=== PATIENT | female | born 1985 | race American Indian/Alaskan Native ===

== ENCOUNTER 2017-12-22 01:37 | Emergency (ER) | payer BC, MEDICAID, OTHER ==
[2017-12-22 01:55] VITALS: BP 131/74
--- NOTE | 2017-12-22 02:30 | EDM.PDOC ---
ED HPI GENERAL MEDICAL PROBLEM - General Chief Complaint: [facility] Problem Stated Complaint: 13 WEEKS HIGH RISK PREGNENCY CRAMPING AND LEG PAIN Time Seen by Provider: 12/22/17 01:55 Source of Information: Reports: Patient History Limitations: Reports: No Limitations - History of Present Illness INITIAL COMMENTS - FREE TEXT/NARRATIVE: The patient states that she has had a "funny" feeling in her anterior thighs since morning, 12/21/2017. She states that she has the sensation that she needs to move her legs. She also reports lower abdominal cramps without vaginal bleeding. She is approximately 13 weeks gestation. She does not know her LMP, but has undergone 2 ultrasounds during this , both demonstrating a single live intrauterine . Her FABIÁN is 06/24/2018. She is L1. Her next appointment with her workforce staffing advisor is on 01/08/2018. No prior similar symptoms. No recent illnesses, however, the patient reports that she is under increased stress, as her recently . Suprapubic Pain Score (Numeric/FACES): 6 - Related Data Allergies Allergy/AdvReac Type Severity Reaction Status Date / Time No Known Allergies Allergy Verified 12/22/17 01:59 Home Meds: Home Meds Ascorbic Acid [Vitamin C] 1 tab PO DAILY 12/22/17 [History] Calcium Carbonate [Calcium] 1 tab PO DAILY 12/22/17 [History] Folic Acid 1 tab PO DAILY 12/22/17 [History] Insulin Aspart [NovoLOG] 14 units SQ QAM 12/22/17 [History] Insulin Aspart [NovoLOG] 16 units SQ QPM 12/22/17 [History] Nph, Human Insulin Isophane [Humulin N] 26 units SQ BEDTIME 12/22/17 [History] Nph, Human Insulin Isophane [Humulin N] 44 units SQ QAM 12/22/17 [History] PNV95/Ferrous Fumarate/FA [ Tablet] 1 tab PO DAILY 12/22/17 [History] metFORMIN HCl [Metformin HCl] 1,000 mg PO BIDMEALS 12/22/17 [History] Past Medical History [facility] History: Reports: Other (See Below) (Polycystic ovarian disease) Endocrine/Metabolic History: Reports: Diabetes, Type II, Obesity/BMI 30+ - Past Surgical History HEENT Surgical History: Reports: Oral Surgery ([place] teeth extraction) GI Surgical History: Reports: Cholecystectomy Female Surgical History: Reports: D&C (x 1) Social & Family History - Family History Family Medical History: Noncontributory - Tobacco Use Smoking Status *Q: Never Smoker - Alcohol Use Alcohol Use History: Yes Alcohol Use Frequency: Rarely (not during ) - Recreational Drug Use Recreational Drug Use: No - Living Situation & Occupation Living situation: Reports: , with Family (Daughter, brother) Occupation: Employed (export manager) ED ROS GENERAL - Review of Systems Review Of Systems: ROS reveals no pertinent complaints other than HPI. ED EXAM - Physical Exam Exam: See Below Exam Limited By: No Limitations General Appearance: Alert, WD/WN, No Apparent Distress Eye Exam: Bilateral Eye: Normal Inspection Ears: Normal External Exam, Hearing Grossly Normal Nose: Normal Inspection, No Blood Throat/Mouth: Normal Inspection, Normal Lips, Normal Voice, No Airway Compromise Head: Atraumatic, Normocephalic Neck: Normal Inspection, Full Range of Motion Respiratory/Chest: No Respiratory Distress, Lungs Clear, Normal Breath Sounds, No Accessory Muscle Use Cardiovascular: Normal Peripheral Pulses, Regular Rate, Rhythm, No Edema, No Gallop, No JVD, No Murmur, No Rub GI/Abdominal Exam: Normal Bowel Sounds, Soft, Non-Tender, No Organomegaly, No Distention, No Abnormal Bruit, No Mass, Other (Obese) Rectal Exam: Deferred Back Exam: Normal Inspection, Full Range of Motion, NT Extremities: Normal Inspection, Normal Range of Motion, No Pedal Edema, Normal Capillary Refill Neurological: Alert, Oriented, Normal Cognition, No Motor/Sensory Deficits Psychiatric: Normal Affect Skin Exam: Warm, Dry, Intact, Normal Color, No Rash Course - Vital Signs Last Recorded V/S: Last Vital Signs Temp 36.8 C 12/22/17 01:51 Pulse 71 12/22/17 01:51 Resp 16 12/22/17 01:51 BP 131/74 12/22/17 01:51 Pulse Ox 98 12/22/17 01:51 - Orders/Labs/Meds Orders: Active Orders 24 hr Category Date Time Status Heart Tones [RC] ASDIRECTED Care 12/22/17 01:43 Active - Re-Assessments/Exams Free Text/Narrative Re-Assessment/Exam: 12/22/17 02:25 The patient complains of a "funny" feeling in her bilateral anterior thighs, and lower abdominal cramps. With respect to the unusual sensation in her thighs, it sounds like she has restless leg syndrome. Ordinarily we would recommend Requip, but this is not recommended during . Heating pads may help. With respect to the patient's lower abdominal cramps, she denies vaginal bleeding, and has had 2 prior ultrasounds demonstrating a SLIUP. While we were not able to obtain heart tones here in the ED tonight, as the patient is only 13 weeks gestation, there would be no change in management at this time even if we were to discover an intrauterine demise. There is therefore no indication to call the library acquisitions technician in at this time. I'm recommending that she follow-up with her Manager Outpatient in the morning. Departure - Departure Time of Disposition: 02:28 Disposition: Home, Self-Care 01 Condition: Good Clinical Impression: Restless leg, Abdominal cramping affecting - Discharge Information Referrals: PCP,Not In Area [Primary Care Provider] - Additional Instructions: You were seen in the emergency room for a funny feeling in your thighs, and lower abdominal cramps, while . Your leg cramps are likely due to restless leg syndrome. Unfortunately, not much can be done about this during . Try heating pads. Unfortunately, heart tones were not able to be obtained, however, that is not uncommon at 13 weeks gestation. We recommend that you follow-up with your workforce staffing advisor later today. If any other problems, please do not hesitate to return to the ER. - My Orders Last 24 Hours: My Active Orders 12/22/17 01:43 Heart Tones [RC] ASDIRECTED - Assessment/Plan Last 24 Hours: My Active Orders 12/22/17 01:43 Heart Tones [RC] ASDIRECTED
== END 2017-12-22 02:30 | disposition home or self-care (01) ==
LOC: JD.ED 01:37
DX: O99.89 Other specified diseases and conditions complicating pregnancy, childbirth and the puerperium (principal); R10.30 Lower abdominal pain, unspecified; O99.351 Diseases of the nervous system complicating pregnancy, first trimester; G25.81 Restless legs syndrome; O99.211 Obesity complicating pregnancy, first trimester; O24.111 Pre-existing type 2 diabetes mellitus, in pregnancy, first trimester; E11.9 Type 2 diabetes mellitus without complications; Z79.4 Long term (current) use of insulin; Z79.899 Other long term (current) drug therapy; Z3A.13 13 weeks gestation of pregnancy
CPT/HCPCS: 99283; 99284